=== PATIENT | male | born 1960 | race Caucasian/White ===

== ENCOUNTER → 2017-03-01 | Outpatient (REF) | payer OTHER | LOC: M SFHCLERA 19:00 | PROVIDERS: ATTEND Nurse Practitioner Family | DX: L02.91 Cutaneous abscess, unspecified (principal) ==

== ENCOUNTER → 2017-03-02 | Outpatient (REF) | payer OTHER | LOC: M LAB REF 10:47 | PROVIDERS: ATTEND Nurse Practitioner Family | DX: L02.91 Cutaneous abscess, unspecified (principal) ==

== ENCOUNTER → 2017-05-01 | Outpatient (CLI) | payer OTHER ==
--- NOTE | 2017-05-01 15:49 | REP ---
LEFT SHOULDER: Three views of the left shoulder are performed. There is no acute fracture or dislocation. There is mild narrowing at the acromioclavicular joint. IMPRESSION: Mild degenerative changes. Signed by Yonatan Kirkpatrick MD 05/02/2017 07:38 P
== END ==
LOC: M LRY 12:37
PROVIDERS: ATTEND Nurse Practitioner Family
DX: M19.012 Primary osteoarthritis, left shoulder (principal)

== ENCOUNTER 2017-11-09 04:40 | Emergency (ER) | payer OTHER ==
[2017-11-09] MEDS: LIDOCAINE W/EPINEPHRINE 1% 20ML VIAL SC (06:15)
== END 2017-11-09 08:09 | disposition home or self-care (01) ==
LOC: M ED 04:40
DX: S00.12XA Contusion of left eyelid and periocular area, initial encounter (principal); S01.91XA Laceration without foreign body of unspecified part of head, initial encounter; Y04.0XXA Assault by unarmed brawl or fight, initial encounter; Y92.89 Other specified places as the place of occurrence of the external cause; Y93.89 Activity, other specified; Y99.8 Other external cause status; M79.641 Pain in right hand; M79.642 Pain in left hand; E78.00 Pure hypercholesterolemia, unspecified; Z79.899 Other long term (current) drug therapy; Z79.82 Long term (current) use of aspirin; Z88.2 Allergy status to sulfonamides; Z88.8 Allergy status to other drugs, medicaments and biological substances
CPT/HCPCS: 73130

== ENCOUNTER 2017-11-16 17:58 | Emergency (ER) | payer OTHER | END 2017-11-16 18:50 | disposition home or self-care (01) | LOC: M ED 17:58 | DX: Z48.02 Encounter for removal of sutures (principal); Z79.899 Other long term (current) drug therapy; Z88.1 Allergy status to other antibiotic agents | CPT/HCPCS: 99282 ==

== ENCOUNTER 2017-11-23 07:53 | Emergency (ER) | payer OTHER | END 2017-11-23 09:23 | disposition home or self-care (01) | LOC: M ED 07:53 | DX: S09.90XD Unspecified injury of head, subsequent encounter (principal); W19.XXXD Unspecified fall, subsequent encounter; Y92.9 Unspecified place or not applicable; Y93.9 Activity, unspecified; M47.812 Spondylosis without myelopathy or radiculopathy, cervical region; Z79.899 Other long term (current) drug therapy; Z88.1 Allergy status to other antibiotic agents | CPT/HCPCS: 70450 ==

== ENCOUNTER 2018-10-29 13:01 | Inpatient (IN) | payer OTHER ==
[2018-10-29] MEDS: NS 1,000 ML IV ×2 (13:45→18:06)
[2018-10-29 14:23] LABS: HEMOGLOBIN 14.4 g/dl (13.5-17.5); MEAN CORPUSCULAR HEMOGLOBIN 32.4 pg (27.0-33.0); MEAN CORPUSCULAR HGB CONC 35.1 g/dl (32.0-36.5); MEAN CORPUSCULAR VOLUME 92.3 fl (80.0-96.0); PLATELET COUNT, AUTOMATED 201 10^3/uL (150-450); RED BLOOD COUNT 4.44 10^6/uL (4.30-6.10); RED CELL DISTRIBUTION WIDTH 11.8 % (11.5-14.5); WHITE BLOOD COUNT 8.8 10^3/uL (4.0-10.0)
[2018-10-29 14:43] LABS: AMPHETAMINES LEVEL URINE NEGATIVE (NEGATIVE); BARBITURATES URINE NEGATIVE (NEGATIVE); BENZODIAZEPINES URINE NEGATIVE (NEGATIVE); CANNABINOIDS URINE NEGATIVE (NEGATIVE); COCAINE METABOLITE URINE NEGATIVE (NEGATIVE); METHADONE URINE NEGATIVE (NEGATIVE); OPIATES URINE POSITIVE (NEGATIVE); PHENCYCLIDINE URINE NEGATIVE (NEGATIVE)
[2018-10-29] MEDS: D5W IV ×3 (15:43→16:57)
[2018-10-29] MEDS: ACETYLCYSTEINE IV ×3 (15:43→16:57)
[2018-10-29 16:03] LABS: BLOOD UREA NITROGEN 16 MG/DL (7-18); CREATININE FOR GFR 1.36 MG/DL (0.70-1.30); GLOMERULAR FILTRATION RATE 57.3 (>56); GLUCOSE, FASTING 282 MG/DL (70-100)
[2018-10-29 16:04] LABS: ALBUMIN 4.4 GM/DL (3.2-5.2); ALBUMIN/GLOBULIN RATIO 1.69 (1.00-1.93); ALKALINE PHOSPHATASE 70 U/L (45-117); ALT/SGPT 71 U/L (12-78); ANION GAP 11 MEQ/L (8-16); AST/SGOT 57 U/L (7-37); BILIRUBIN,DIRECT 0.1 MG/DL (0.0-0.2); BILIRUBIN,TOTAL 0.3 MG/DL (0.2-1.0); CALCIUM LEVEL 8.4 MG/DL (8.5-10.1); CARBON DIOXIDE LEVEL 23 MEQ/L (21-32); CHLORIDE LEVEL 99 MEQ/L (98-107); CPK CREATINE PHOSPHOKINASE 73 U/L (39-308); POTASSIUM SERUM 5.3 MEQ/L (3.5-5.1); SODIUM LEVEL 133 MEQ/L (136-145)
[2018-10-29 16:05] LABS: ACETAMINOPHEN LEVEL 101.6 UG/ML (10.0-30.0); ETHYL ALCOHOL (ETHANOL) 0.003 % (0.000-0.010); SALICYLATE LEVEL < 1.7 MG/DL (5.0-30.0)
[2018-10-29] MEDS: ACETYLCYSTEINE 8,500 MG in D5W 1,000 ML IV ×2 (16:30→21:45)
[2018-10-29 16:56] LABS: MB/CK RELATIVE INDEX 1.92 (< OR =4); TROPONIN I < 0.02 NG/ML (< 0.10)
[2018-10-29 17:00] LABS: ABG BASE EXCESS -6.6 (-2.0-2.0); ABG HCO3 21.6 MEQ/L (22.0-26.0); ABG O2 SATURATION 97.9 % (95.0-99.0); ABG PARTIAL PRESSURE CO2 53.6 mmHg (35.0-45.0); ABG PARTIAL PRESSURE O2 113.7 mmHg (75.0-100.0); ABG STANDARD HCO3 19.2 MEQ/L (22.0-26.0); ABG TOTAL CO2 23.2 MEQ/L (22.0-29.0)
[2018-10-29 17:02] LABS: ABG pH (ARTERIAL) 7.223 UNITS (7.350-7.450)
[2018-10-29] MEDS: NALOXONE INJ 0.4 MG/1 ML VIAL (J2310) IV (17:19)
[2018-10-29 17:41] LABS: ANION GAP 10 MEQ/L (8-16); BLOOD UREA NITROGEN 15 MG/DL (7-18); CALCIUM LEVEL 7.9 MG/DL (8.5-10.1); CARBON DIOXIDE LEVEL 24 MEQ/L (21-32); CHLORIDE LEVEL 102 MEQ/L (98-107); CREATININE FOR GFR 1.16 MG/DL (0.70-1.30); GLOMERULAR FILTRATION RATE > 60.0 (>56); GLUCOSE, FASTING 227 MG/DL (70-100); POTASSIUM SERUM 4.6 MEQ/L (3.5-5.1); SODIUM LEVEL 136 MEQ/L (136-145)
[2018-10-29 18:21] LABS: ABG BASE EXCESS -8.7 (-2.0-2.0); ABG HCO3 18.3 MEQ/L (22.0-26.0); ABG O2 SATURATION 96.5 % (95.0-99.0); ABG PARTIAL PRESSURE CO2 43.3 mmHg (35.0-45.0); ABG PARTIAL PRESSURE O2 91.7 mmHg (75.0-100.0); ABG STANDARD HCO3 17.6 MEQ/L (22.0-26.0); ABG TOTAL CO2 19.6 MEQ/L (22.0-29.0)
[2018-10-29 18:28] LABS: ABG pH (ARTERIAL) 7.244 UNITS (7.350-7.450)
[2018-10-29] MEDS ORDERED: GLUCOSE 4 GM CHEW TABLET PO (19:00)
[2018-10-29] MEDS ORDERED: DEXTROSE 50% 50 ML SYRINGE IV (19:00)
[2018-10-29] MEDS ORDERED: GLUCAGON FOR INJ 1 MG VIAL (J1610) SC (19:00)
[2018-10-29 19:16] LABS: INR 1.26
[2018-10-29 19:19] LABS: LACTIC ACID SEPSIS PROTOCOL 4.3 MMOL/L (0.4-2.0)
[2018-10-29] MEDS: SODIUM BICARBONATE 8.4% INJ 50 ML SYRINGE IV (19:34)
[2018-10-29] MEDS ORDERED: NS 0.45% 1,000 ML IV (19:45)
[2018-10-29 20:19] LABS: APPEARANCE, URINE CLEAR (CLEAR); BACTERIA, URINE AUTO NEGATIVE (NEGATIVE); BILIRUBIN, URINE AUTO NEGATIVE (NEGATIVE); BLOOD, URINE BLOOD NEGATIVE (NEGATIVE); COLOR, URINE YELLOW (YELLOW); GLUCOSE, URINE (UA) AUTO 1+ mg/dL (NEGATIVE); KETONE, URINE AUTO 1+ mg/dL (NEGATIVE); LEUKOCYTE ESTERASE, URINE AUTO NEGATIVE (NEGATIVE); NITRITE, URINE AUTO NEGATIVE (NEGATIVE); PROTEIN, URINE AUTO NEGATIVE (NEGATIVE); RBC, URINE AUTO 5 /HPF (0-3); SPECIFIC GRAVITY URINE AUTO 1.032 (1.002-1.035); SQUAMOUS EPITHELIAL CELL UR AU 0 /HPF (0-6); UROBILINOGEN, URINE AUTO 0.2 mg/dL (0.0-2.0); WBC, URINE AUTO 1 /HPF (0-3)
[2018-10-29] MEDS: SODIUM BICARBONATE 50 MEQ in NS 0.45% 1,000 ML IV (20:58)
[2018-10-29] MEDS ORDERED: HumaLOG INSULIN (NovoLOG) PER UNIT SC (21:00)
[2018-10-29 22:45] LABS: ACETAMINOPHEN LEVEL 74.7 UG/ML (10.0-30.0); ALBUMIN/GLOBULIN RATIO 1.48 (1.00-1.93); ALKALINE PHOSPHATASE 59 U/L (45-117); ALT/SGPT 96 U/L (12-78); ANION GAP 9 MEQ/L (8-16); AST/SGOT 72 U/L (7-37); BILIRUBIN,TOTAL 0.5 MG/DL (0.2-1.0); BLOOD UREA NITROGEN 14 MG/DL (7-18); CALCIUM LEVEL 8.4 MG/DL (8.5-10.1); CARBON DIOXIDE LEVEL 25 MEQ/L (21-32); CHLORIDE LEVEL 103 MEQ/L (98-107); CREATININE FOR GFR 0.95 MG/DL (0.70-1.30); GLOMERULAR FILTRATION RATE > 60.0 (>56); GLUCOSE, FASTING 141 MG/DL (70-100); POTASSIUM SERUM 4.5 MEQ/L (3.5-5.1); SODIUM LEVEL 137 MEQ/L (136-145); TOTAL PROTEIN 6.7 GM/DL (6.4-8.2)
[2018-10-30 00:07] LABS: BEDSIDE GLUCOSE 137 MG/DL (70-105)
[2018-10-30 00:09] LABS: ABG BASE EXCESS -5.6 (-2.0-2.0); ABG HCO3 22.2 MEQ/L (22.0-26.0); ABG O2 SATURATION 97.8 % (95.0-99.0); ABG PARTIAL PRESSURE CO2 52.5 mmHg (35.0-45.0); ABG PARTIAL PRESSURE O2 106.2 mmHg (75.0-100.0); ABG STANDARD HCO3 19.9 MEQ/L (22.0-26.0); ABG TOTAL CO2 23.8 MEQ/L (22.0-29.0)
[2018-10-30 00:10] LABS: ABG pH (ARTERIAL) 7.244 UNITS (7.350-7.450)
[2018-10-30] MEDS: HumaLOG INSULIN (NovoLOG) PER UNIT SC ×5 (00:59→20:43)
[2018-10-30 02:17] LABS: ACETAMINOPHEN LEVEL 43.3 UG/ML (10.0-30.0); ALBUMIN 3.8 GM/DL (3.2-5.2); ALBUMIN/GLOBULIN RATIO 1.52 (1.00-1.93); ALKALINE PHOSPHATASE 56 U/L (45-117); ALT/SGPT 86 U/L (12-78); ANION GAP 11 MEQ/L (8-16); AST/SGOT 61 U/L (7-37); BILIRUBIN,TOTAL 0.5 MG/DL (0.2-1.0); BLOOD UREA NITROGEN 12 MG/DL (7-18); CALCIUM LEVEL 8.1 MG/DL (8.5-10.1); CARBON DIOXIDE LEVEL 24 MEQ/L (21-32); CHLORIDE LEVEL 102 MEQ/L (98-107); CREATININE FOR GFR 0.88 MG/DL (0.70-1.30); GLOMERULAR FILTRATION RATE > 60.0 (>56); GLUCOSE, FASTING 134 MG/DL (70-100); POTASSIUM SERUM 4.1 MEQ/L (3.5-5.1); SODIUM LEVEL 137 MEQ/L (136-145); TOTAL PROTEIN 6.3 GM/DL (6.4-8.2)
[2018-10-30 06:08] LABS: BEDSIDE GLUCOSE 117 MG/DL (70-105)
[2018-10-30 06:16] LABS: ACETAMINOPHEN LEVEL 37.9 UG/ML (10.0-30.0); ALBUMIN 3.6 GM/DL (3.2-5.2); ALBUMIN/GLOBULIN RATIO 1.64 (1.00-1.93); ALKALINE PHOSPHATASE 53 U/L (45-117); ALT/SGPT 84 U/L (12-78); ANION GAP 8 MEQ/L (8-16); AST/SGOT 60 U/L (7-37); BILIRUBIN,TOTAL 0.5 MG/DL (0.2-1.0); BLOOD UREA NITROGEN 10 MG/DL (7-18); CALCIUM LEVEL 8.1 MG/DL (8.5-10.1); CARBON DIOXIDE LEVEL 26 MEQ/L (21-32); CHLORIDE LEVEL 105 MEQ/L (98-107); CREATININE FOR GFR 0.79 MG/DL (0.70-1.30); GLOMERULAR FILTRATION RATE > 60.0 (>56); GLUCOSE, FASTING 125 MG/DL (70-100); POTASSIUM SERUM 3.6 MEQ/L (3.5-5.1); SODIUM LEVEL 139 MEQ/L (136-145); TOTAL PROTEIN 5.8 GM/DL (6.4-8.2)
[2018-10-30 06:23] LABS: ABG pH (ARTERIAL) 7.303 UNITS (7.350-7.450)
[2018-10-30 06:24] LABS: ABG HCO3 26.2 MEQ/L (22.0-26.0); ABG O2 SATURATION 98.3 % (95.0-99.0); ABG PARTIAL PRESSURE CO2 54.1 mmHg (35.0-45.0); ABG PARTIAL PRESSURE O2 124.1 mmHg (75.0-100.0); ABG STANDARD HCO3 23.7 MEQ/L (22.0-26.0); ABG TOTAL CO2 27.9 MEQ/L (22.0-29.0)
[2018-10-30] MEDS: SODIUM BICARBONATE 50 MEQ in NS 0.45% 1,000 ML IV ×2 (06:56→16:34)
[2018-10-30] MEDS ORDERED: HumaLOG INSULIN (NovoLOG) PER UNIT SC (07:30)
[2018-10-30] MEDS ORDERED: POTASSIUM CHLORIDE 10 MEQ SR TABLET As Ordered (10:21)
[2018-10-30] MEDS: POTASSIUM CHLORIDE 10 MEQ SR TABLET PO ×2 (10:32→16:34)
[2018-10-30 11:22] LABS: HEMATOCRIT 37.7 % (42.0-52.0); HEMOGLOBIN 13.5 g/dl (13.5-17.5); MEAN CORPUSCULAR HEMOGLOBIN 32.3 pg (27.0-33.0); MEAN CORPUSCULAR HGB CONC 35.8 g/dl (32.0-36.5); MEAN CORPUSCULAR VOLUME 90.2 fl (80.0-96.0); PLATELET COUNT, AUTOMATED 177 10^3/uL (150-450); RED BLOOD COUNT 4.18 10^6/uL (4.30-6.10); RED CELL DISTRIBUTION WIDTH 11.9 % (11.5-14.5); WHITE BLOOD COUNT 10.1 10^3/uL (4.0-10.0)
[2018-10-30 11:41] LABS: BEDSIDE GLUCOSE 191 MG/DL (70-105)
[2018-10-30 11:43] LABS: INR 1.31; PROTHROMBIN TIME 16.5 SECONDS (12.1-14.4)
[2018-10-30] MEDS: ONDANSETRON 4 MG TAB (S0181) PO (11:45)
[2018-10-30 11:58] LABS: ACETAMINOPHEN LEVEL 34.1 UG/ML (10.0-30.0); ALBUMIN 3.6 GM/DL (3.2-5.2); ALKALINE PHOSPHATASE 57 U/L (45-117); ALT/SGPT 109 U/L (12-78); AST/SGOT 91 U/L (7-37); BILIRUBIN,DIRECT 0.2 MG/DL (0.0-0.2); BILIRUBIN,TOTAL 0.6 MG/DL (0.2-1.0)
[2018-10-30] MEDS ORDERED: ACETYLCYSTEINE 0 MG in D5W 1,000 ML IV (12:30)
[2018-10-30] MEDS ORDERED: ONDANSETRON 4MG/2ML VIAL (J2405) IV (12:30)
[2018-10-30] MEDS: OMEPRAZOLE 20 MG CAP PO (13:02)
[2018-10-30] MEDS: ESCITALOPRAM OXALATE 10 MG TAB (LEXAPRO) PO (13:02)
[2018-10-30 13:08] LABS: ANION GAP 10 MEQ/L (8-16); BLOOD UREA NITROGEN 8 MG/DL (7-18); CALCIUM LEVEL 8.1 MG/DL (8.5-10.1); CARBON DIOXIDE LEVEL 25 MEQ/L (21-32); CHLORIDE LEVEL 101 MEQ/L (98-107); CREATININE FOR GFR 0.88 MG/DL (0.70-1.30); GLOMERULAR FILTRATION RATE > 60.0 (>56); GLUCOSE, FASTING 210 MG/DL (70-100); POTASSIUM SERUM 3.5 MEQ/L (3.5-5.1); SODIUM LEVEL 136 MEQ/L (136-145)
[2018-10-30] MEDS: ACETYLCYSTEINE 8,500 MG in D5W 1,000 ML IV (13:58)
[2018-10-30 16:38] LABS: BEDSIDE GLUCOSE 130 MG/DL (70-105)
[2018-10-30 17:05] LABS: ACETAMINOPHEN LEVEL 20.6 UG/ML (10.0-30.0); ALBUMIN 3.6 GM/DL (3.2-5.2); ALBUMIN/GLOBULIN RATIO 1.57 (1.00-1.93); ALKALINE PHOSPHATASE 52 U/L (45-117); ALT/SGPT 149 U/L (12-78); ANION GAP 8 MEQ/L (8-16); AST/SGOT 136 U/L (7-37); BILIRUBIN,TOTAL 0.5 MG/DL (0.2-1.0); BLOOD UREA NITROGEN 5 MG/DL (7-18); CALCIUM LEVEL 8.3 MG/DL (8.5-10.1); CARBON DIOXIDE LEVEL 27 MEQ/L (21-32); CHLORIDE LEVEL 105 MEQ/L (98-107); CREATININE FOR GFR 0.79 MG/DL (0.70-1.30); GLOMERULAR FILTRATION RATE > 60.0 (>56); GLUCOSE, FASTING 102 MG/DL (70-100); SODIUM LEVEL 140 MEQ/L (136-145); TOTAL PROTEIN 5.9 GM/DL (6.4-8.2)
[2018-10-30 18:10] LABS: ABG BASE EXCESS -1.3 (-2.0-2.0); ABG HCO3 24.2 MEQ/L (22.0-26.0); ABG O2 SATURATION 95.4 % (95.0-99.0); ABG PARTIAL PRESSURE CO2 43.7 mmHg (35.0-45.0); ABG PARTIAL PRESSURE O2 72.2 mmHg (75.0-100.0); ABG STANDARD HCO3 23.3 MEQ/L (22.0-26.0); ABG TOTAL CO2 25.5 MEQ/L (22.0-29.0); ABG pH (ARTERIAL) 7.361 UNITS (7.350-7.450)
[2018-10-30 20:25] LABS: ACETAMINOPHEN LEVEL 9.4 UG/ML (10.0-30.0); ALBUMIN 3.7 GM/DL (3.2-5.2); ALBUMIN/GLOBULIN RATIO 1.61 (1.00-1.93); ALKALINE PHOSPHATASE 55 U/L (45-117); ALT/SGPT 207 U/L (12-78); ANION GAP 7 MEQ/L (8-16); AST/SGOT 198 U/L (7-37); BILIRUBIN,TOTAL 0.6 MG/DL (0.2-1.0); BLOOD UREA NITROGEN 4 MG/DL (7-18); CALCIUM LEVEL 8.6 MG/DL (8.5-10.1); CARBON DIOXIDE LEVEL 29 MEQ/L (21-32); CHLORIDE LEVEL 104 MEQ/L (98-107); GLOMERULAR FILTRATION RATE > 60.0 (>56); GLUCOSE, FASTING 163 MG/DL (70-100); SODIUM LEVEL 140 MEQ/L (136-145)
[2018-10-30 20:46] LABS: BEDSIDE GLUCOSE 157 MG/DL (70-105)
[2018-10-31 00:44] LABS: ACETAMINOPHEN LEVEL 3.9 UG/ML (10.0-30.0); ALBUMIN 3.5 GM/DL (3.2-5.2); ALBUMIN/GLOBULIN RATIO 1.59 (1.00-1.93); ALKALINE PHOSPHATASE 56 U/L (45-117); ALT/SGPT 337 U/L (12-78); ANION GAP 6 MEQ/L (8-16); AST/SGOT 371 U/L (7-37); BILIRUBIN,TOTAL 0.7 MG/DL (0.2-1.0); BLOOD UREA NITROGEN 3 MG/DL (7-18); CALCIUM LEVEL 8.1 MG/DL (8.5-10.1); CARBON DIOXIDE LEVEL 29 MEQ/L (21-32); CHLORIDE LEVEL 105 MEQ/L (98-107); CREATININE FOR GFR 0.71 MG/DL (0.70-1.30); GLOMERULAR FILTRATION RATE > 60.0 (>56); GLUCOSE, FASTING 138 MG/DL (70-100); POTASSIUM SERUM 4.1 MEQ/L (3.5-5.1); SODIUM LEVEL 140 MEQ/L (136-145); TOTAL PROTEIN 5.7 GM/DL (6.4-8.2)
[2018-10-31 03:27] LABS: BEDSIDE GLUCOSE 162 MG/DL (70-105)
[2018-10-31] MEDS: SODIUM BICARBONATE 50 MEQ in NS 0.45% 1,000 ML IV (03:47)
[2018-10-31] MEDS: ACETYLCYSTEINE 8,500 MG in D5W 1,000 ML IV (05:07)
[2018-10-31 05:11] LABS: HEMATOCRIT 37.9 % (42.0-52.0); HEMOGLOBIN 13.6 g/dl (13.5-17.5); MEAN CORPUSCULAR HEMOGLOBIN 32.4 pg (27.0-33.0); MEAN CORPUSCULAR HGB CONC 35.9 g/dl (32.0-36.5); MEAN CORPUSCULAR VOLUME 90.2 fl (80.0-96.0); PLATELET COUNT, AUTOMATED 156 10^3/uL (150-450); RED CELL DISTRIBUTION WIDTH 11.6 % (11.5-14.5); WHITE BLOOD COUNT 8.4 10^3/uL (4.0-10.0)
[2018-10-31 05:20] LABS: PROTHROMBIN TIME 16.3 SECONDS (12.1-14.4)
[2018-10-31 05:38] LABS: ACETAMINOPHEN LEVEL 2.5 UG/ML (10.0-30.0); ALBUMIN 3.5 GM/DL (3.2-5.2); ALBUMIN/GLOBULIN RATIO 1.59 (1.00-1.93); ALKALINE PHOSPHATASE 59 U/L (45-117); ALT/SGPT 521 U/L (12-78); ANION GAP 7 MEQ/L (8-16); AST/SGOT 558 U/L (7-37); BILIRUBIN,DIRECT 0.4 MG/DL (0.0-0.2); BILIRUBIN,TOTAL 0.9 MG/DL (0.2-1.0); BLOOD UREA NITROGEN 3 MG/DL (7-18); CALCIUM LEVEL 8.2 MG/DL (8.5-10.1); CARBON DIOXIDE LEVEL 30 MEQ/L (21-32); CHLORIDE LEVEL 100 MEQ/L (98-107); CREATININE FOR GFR 0.72 MG/DL (0.70-1.30); GLOMERULAR FILTRATION RATE > 60.0 (>56); GLUCOSE, FASTING 157 MG/DL (70-100); POTASSIUM SERUM 3.9 MEQ/L (3.5-5.1); SODIUM LEVEL 137 MEQ/L (136-145); TOTAL PROTEIN 5.7 GM/DL (6.4-8.2)
[2018-10-31] MEDS ORDERED: ACETYLCYSTEINE 0 MG in D5W 1,000 ML IV (06:00)
[2018-10-31 07:44] LABS: BEDSIDE GLUCOSE 156 MG/DL (70-105)
[2018-10-31] MEDS: OMEPRAZOLE 20 MG CAP PO (08:37)
[2018-10-31] MEDS: HumaLOG INSULIN (NovoLOG) PER UNIT SC ×4 (08:37→21:00)
[2018-10-31] MEDS: ESCITALOPRAM OXALATE 10 MG TAB (LEXAPRO) PO (09:02)
[2018-10-31 09:49] LABS: ACETAMINOPHEN LEVEL < 2.0 UG/ML (10.0-30.0); ALBUMIN 3.7 GM/DL (3.2-5.2); ALBUMIN/GLOBULIN RATIO 1.54 (1.00-1.93); ALKALINE PHOSPHATASE 59 U/L (45-117); ALT/SGPT 596 U/L (12-78); ANION GAP 10 MEQ/L (8-16); AST/SGOT 580 U/L (7-37); BILIRUBIN,TOTAL 0.9 MG/DL (0.2-1.0); BLOOD UREA NITROGEN 3 MG/DL (7-18); CALCIUM LEVEL 8.7 MG/DL (8.5-10.1); CARBON DIOXIDE LEVEL 29 MEQ/L (21-32); CHLORIDE LEVEL 100 MEQ/L (98-107); CREATININE FOR GFR 0.84 MG/DL (0.70-1.30); GLOMERULAR FILTRATION RATE > 60.0 (>56); GLUCOSE, FASTING 175 MG/DL (70-100); POTASSIUM SERUM 3.8 MEQ/L (3.5-5.1); SODIUM LEVEL 139 MEQ/L (136-145); TOTAL PROTEIN 6.1 GM/DL (6.4-8.2)
[2018-10-31 12:28] LABS: BEDSIDE GLUCOSE 169 MG/DL (70-105)
[2018-10-31] MEDS ORDERED: SLF 3 ML SYR IV (15:00)
[2018-10-31 17:10] LABS: BEDSIDE GLUCOSE 138 MG/DL (70-105)
[2018-10-31 18:26] LABS: MAGNESIUM LEVEL 1.8 MG/DL (1.8-2.4)
[2018-10-31 18:28] LABS: INR 1.16
[2018-10-31 18:34] LABS: ACETAMINOPHEN LEVEL < 2.0 UG/ML (10.0-30.0); ALBUMIN 3.8 GM/DL (3.2-5.2); ALBUMIN/GLOBULIN RATIO 1.31 (1.00-1.93); ALKALINE PHOSPHATASE 73 U/L (45-117); ALT/SGPT 629 U/L (12-78); ANION GAP 10 MEQ/L (8-16); AST/SGOT 413 U/L (7-37); BILIRUBIN,DIRECT 0.4 MG/DL (0.0-0.2); BLOOD UREA NITROGEN 4 MG/DL (7-18); CALCIUM LEVEL 8.9 MG/DL (8.5-10.1); CARBON DIOXIDE LEVEL 27 MEQ/L (21-32); CHLORIDE LEVEL 103 MEQ/L (98-107); CREATININE FOR GFR 0.71 MG/DL (0.70-1.30); GLOMERULAR FILTRATION RATE > 60.0 (>56); GLUCOSE, FASTING 168 MG/DL (70-100); POTASSIUM SERUM 3.9 MEQ/L (3.5-5.1); SODIUM LEVEL 140 MEQ/L (136-145); TOTAL PROTEIN 6.7 GM/DL (6.4-8.2)
[2018-10-31] MEDS: MAG SULF 1GM/100ML (MAG RUN) 1 GM in APPROPRIATE DILUENT 1 EA IV (18:58)
[2018-10-31 19:18] LABS: CPK CREATINE PHOSPHOKINASE 110 U/L (39-308)
[2018-10-31] MEDS: ACETYLCYSTEINE IV (20:09)
[2018-10-31] MEDS: D5W IV (20:09)
[2018-10-31 21:21] LABS: BEDSIDE GLUCOSE 194 MG/DL (70-105)
[2018-10-31] MEDS: SLF 3 ML SYR IV (21:22)
[2018-11-01 05:01] LABS: HEMOGLOBIN 14.1 g/dl (13.5-17.5); MEAN CORPUSCULAR HEMOGLOBIN 31.9 pg (27.0-33.0); MEAN CORPUSCULAR HGB CONC 36.2 g/dl (32.0-36.5); MEAN CORPUSCULAR VOLUME 88.2 fl (80.0-96.0); PLATELET COUNT, AUTOMATED 166 10^3/uL (150-450); RED BLOOD COUNT 4.42 10^6/uL (4.30-6.10); RED CELL DISTRIBUTION WIDTH 11.6 % (11.5-14.5); WHITE BLOOD COUNT 6.9 10^3/uL (4.0-10.0)
[2018-11-01 05:21] LABS: ALBUMIN 3.6 GM/DL (3.2-5.2); ALKALINE PHOSPHATASE 69 U/L (45-117); ALT/SGPT 529 U/L (12-78); ANION GAP 6 MEQ/L (8-16); AST/SGOT 248 U/L (7-37); BILIRUBIN,TOTAL 0.8 MG/DL (0.2-1.0); BLOOD UREA NITROGEN 6 MG/DL (7-18); CALCIUM LEVEL 8.8 MG/DL (8.5-10.1); CARBON DIOXIDE LEVEL 30 MEQ/L (21-32); CHLORIDE LEVEL 102 MEQ/L (98-107); CREATININE FOR GFR 0.67 MG/DL (0.70-1.30); GLOMERULAR FILTRATION RATE > 60.0 (>56); GLUCOSE, FASTING 166 MG/DL (70-100); POTASSIUM SERUM 3.4 MEQ/L (3.5-5.1); SODIUM LEVEL 138 MEQ/L (136-145); TOTAL PROTEIN 6.6 GM/DL (6.4-8.2)
[2018-11-01] MEDS: SLF 3 ML SYR IV ×2 (05:59→14:00)
[2018-11-01 07:51] LABS: BEDSIDE GLUCOSE 157 MG/DL (70-105)
[2018-11-01] MEDS: ESCITALOPRAM OXALATE 10 MG TAB (LEXAPRO) PO (08:19)
[2018-11-01] MEDS: OMEPRAZOLE 20 MG CAP PO (08:19)
[2018-11-01] MEDS: HumaLOG INSULIN (NovoLOG) PER UNIT SC ×3 (08:19→17:30)
[2018-11-01] MEDS: POTASSIUM CHLORIDE 10 MEQ SR TABLET PO (08:20)
[2018-11-01 08:21] LABS: INR 1.03; PROTHROMBIN TIME 13.6 SECONDS (12.1-14.4)
[2018-11-01 11:58] LABS: BEDSIDE GLUCOSE 133 MG/DL (70-105)
[2018-11-01] MEDS: LISINOPRIL 10 MG TAB PO (12:28)
[2018-11-01 17:05] LABS: BEDSIDE GLUCOSE 136 MG/DL (70-105)
[2018-11-01] MEDS ORDERED: EZETIMIBE 10 MG TAB (ZETIA) PO (21:00)
== END 2018-11-01 19:13 | DRG 918 ==
LOC: M ED 13:01 → M ED INP 19:21 → M ICU 19:58
DX: T40.2X2A Poisoning by other opioids, intentional self-harm, initial encounter (principal); E87.2 Acidosis; N17.9 Acute kidney failure, unspecified; T46.4X2A Poisoning by angiotensin-converting-enzyme inhibitors, intentional self-harm, initial encounter; E11.9 Type 2 diabetes mellitus without complications; I10 Essential (primary) hypertension; F32.9 Major depressive disorder, single episode, unspecified; K21.9 Gastro-esophageal reflux disease without esophagitis; E78.49 Other hyperlipidemia; N52.9 Male erectile dysfunction, unspecified; Z88.2 Allergy status to sulfonamides; F10.10 Alcohol abuse, uncomplicated; Z79.899 Other long term (current) drug therapy; E87.6 Hypokalemia; R33.9 Retention of urine, unspecified

== ENCOUNTER 2018-11-01 18:47 | Inpatient (IN) | payer OTHER ==
[~2018-11-01] VITALS: Ht 167.6 cm; Wt 82.3 kg
[~2018-11-01 18:47] MED LIST: ESCI20TA PO; HYDR-3713 PO; HYDR-3716; LISI-672 PO; MELO15TA28 PO; METF500T13 PO; NEXI40CA PO; NORT25CA2 PO; SILD50TA PO; TIZA2CAP PO; TRAM50TA2; ZETI10TA30 PO
[2018-11-01] MEDS ORDERED: IBUPROFEN 400 MG TAB PO PRN (19:00)
[2018-11-01] MEDS ORDERED: ONDANSETRON 4 MG TAB (S0181) PO PRN (19:00)
[2018-11-01] MEDS ORDERED: MOM 30ML SUSPENSION UDC PO PRN (19:00)
[2018-11-01] MEDS ORDERED: MAALOX 30 ML SUSP *UDC PO PRN (19:00)
[2018-11-01] MEDS ORDERED: DEXTROSE 50% 50 ML SYRINGE IV PRN (19:15)
[2018-11-01] MEDS ORDERED: GLUCAGON FOR INJ 1 MG VIAL (J1610) SC PRN (19:15)
[2018-11-01] MEDS ORDERED: GLUCOSE 4 GM CHEW TABLET PO PRN (19:15)
[2018-11-01 19:46] VITALS: BP 152/90
[2018-11-01] MEDS: HumaLOG INSULIN (NovoLOG) PER UNIT SC SCH (21:00)
[2018-11-02] MEDS: HumaLOG INSULIN (NovoLOG) PER UNIT SC SCH ×4 (06:51→21:00)
[2018-11-02 07:03] VITALS: BP 143/88
[2018-11-02 07:43] LABS: ALBUMIN 4.3 GM/DL (3.2-5.2); ALT/SGPT 409 U/L (12-78); BILIRUBIN,DIRECT 0.2 MG/DL (0.0-0.2); BILIRUBIN,TOTAL 0.7 MG/DL (0.2-1.0); BLOOD UREA NITROGEN 10 MG/DL (7-18); CALCIUM LEVEL 9.8 MG/DL (8.5-10.1); CARBON DIOXIDE LEVEL 31 MEQ/L (21-32); CHLORIDE LEVEL 104 MEQ/L (98-107); CREATININE FOR GFR 0.91 MG/DL (0.70-1.30); GLOMERULAR FILTRATION RATE > 60.0 (>56); GLUCOSE, FASTING 138 MG/DL (70-100); POTASSIUM SERUM 4.3 MEQ/L (3.5-5.1); SODIUM LEVEL 142 MEQ/L (136-145); TOTAL PROTEIN 7.1 GM/DL (6.4-8.2)
[2018-11-02] MEDS: OMEPRAZOLE 20 MG CAP PO SCH (09:12)
--- NOTE | 2018-11-02 15:28 | MHHPEPDOC ---
[facility] History & Physical History and Physical DATE OF ADMISSION: Nov 01, 2018 at 19:15 LEGAL STATUS AT ADMISSION: 9.39 CHIEF COMPLAINT: Recent overdose (severe) HISTORY OF PRESENT ILLNESS: Patient is a 58-year-old male, who , according to previous records: "As per previous records: "Patient is a 58-year-old male with past medical history of diabetes, hypertension, depression, erectile dysfunction, GERD, hyperlipidemia presenting with chief complaint of an overdose and altered mental status. History limited secondary to patient being unable to give an appropriate history of the last 24 hours. He believes that sometime last night he woke possibly 60 tablets of hydrocodone, 20 lisinopril 10 mg, and 20 lisinopril 20 mg. history obtained by the ER attending however states that we at time of presentation we were approximately 11 hours into the overdose. Per his , he told her that he left a note for her on the computer and she believes he did intend to kill himself. She states that he has been having a lot of social difficulties with his family recently and that could've been a continuing factor to his suicidal actions. At bedside patient becomes easily distracted when asked questions and is not able to remember any answer. But he does attempt to respond to questions and after repeated prompting is able to respond appropriately. He states he is felt depressed for many the past years, his states that he has been taking his antidepressant medication during this time." PSYCHIATRIC REVIEW OF SYSTEMS: Affective: Depressed mood, anhedonia, guilty feelings, low energy levels, hopelessness, helplessness, worthlessness, poor sleep, normal appetite, suicidal thoughts, poor attention and concentration Anxiety: irritability, muscle tension, poor concentration, anxious thoughts about the future Trauma: denies Psychosis: denies Personality: R/O paranoid personality traits PAST PSYCHIATRIC HISTORY: Prior Psychiatric Disorder: Depression Outpatient Treatment: . Suicidal/Self injurious: Yes, a recent one on 10/29/18. He OD'd on Hydrocodone (approximately 60 tablets of 20 mgs.) Lisinopril ( approximately 20 tablets of 10 mgs and Lisinorpril approximately 20 tablets of 10 mgs. Psychotropic Medication History: he has been taking Lexapro for several years since his 16 year old son committed suicide ALLERGIES: Please see below. FAMILY PSYCHIATRIC HISTORY: He denies other family members with psychiatric di sorders, except for his 16 year old son who committed suicide at age 16 SOCIAL HISTORY: Early Relations/development: Born in [place], raised in [place] and went into service when he was 16. Sibling order: His father has three children, his mother had 3 and he is the only one from mom and dad Paternal relationships: Father from liver cancer around 6 years ago and his mother is living at an assisted living facility in [place]. 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 His son was taken Accutane for acne and he got severely depressed. He took his life. Economic: He receives his money from his intermediate and his too. It's enough for them Supports: His Abuse/trauma: Denies SUBSTANCE ABUSE HISTORY: . PAST MEDICAL/SURGICAL HISTORY: As per previous documents: "diabetes, hypertension, depression, erectile dysfunction, GERD, hyperlipidemia" VITAL SIGNS: Please see below. MENTAL STATUS EXAMINATION: Patient is a 58-year old male, who is alert, laying in bed, dressed in hospitl clothes, cooperative. Speech: Is normal rate, tone and volume. Language skills are good. Thought processes including: intact. Thought content: angry thoughts directed agains his in laws. Depressed and anxious thoughts. Cognitive distortions. Description of abnormal or psychotic thoughts: Denies AV hallucinations, denies thought delusions but he seems a little paranoid, denies active suicidal thoughts but admits passive SI. Denies HI Judgment: Poor Insight: Poor Orientation: x 3 Recent and remote memory: Intact Attention span and concentration: good Language: normal Fund of knowledge: average Mood: Depressed/anxious. he says "I'm more emotional since I've been out of the Lexapro" Affect: Congruent with mood DIAGNOSES: 1. Major Depressive disorder, recurrent 2. Alcohol use disorder 3. R/O alcohol induced mood disorder DIAGNOSES: 1. major Depressive disorder, recurrent, severe 2. Generalized anxiety disorder 3. R/O personality disorder ASSESSMENT: Patient is severely depressed over a series of family problems that lead to him being arrested. He has been charged. he says nobody believes him and some people have told him "it's only land" but these people can't figure out how valuable that land is for him. Apparently he bought it 20 years ago. that land belonged to his 's relatives and according to him one of his 's brothers has been trespassing his property and cutting the trees in it. Since he thinks nobody believes him, he took and impulsive decision and he overdosed. he says he wope up twice and he was very surprised because he was still alive, so, he took more pills. His found him sleeping on the high school coach and she tried to wake him up but he was unresponsive. After she shook him, he opened his eyes but he had a blank stare. she called the ambulance and he was brought to the hospital. he is still very vulnerable and very depressed. needs his medications to be adjusted and to be stabilized. he said that he also has been drinking about 5 onces of al cohol lately and he has been hiding this from his . he thinkd the alcohol might have something to do with his suicide attempt. PROBLEM LIST: 1. Depression 2. Anxiety. 3. Poor coping skills. INITIAL TREATMENT PLAN: 1. Patient was admitted on a 9. 2. Complete history was obtained. 3. With patients permission, family will be contacted and database will be expanded. 4. Patients medication regimen will be reviewed and changed accordingly. 5. Patient will be provided with protected environment. 6. Patient will be treated with individual, group, and milieu therapies. 7. Patient will receive supportive psych-education. 8. Discharge planning will commence immediately. 9. Outpatient follow-up treatment will be strongly recommended. 10. The initial treatment plan will focus initially on: * Depression. * Risk for suicide. * Substance abuse. ESTIMATED LENGTH OF STAY: 5-7 DAYS. TIME SPENT COUNSELING AND COORDINATING INITIAL CARE: 60 minutes. Vital Signs Vital Signs Date Time Temp Pulse Resp B/P (MAP) Pulse Ox O2 Delivery O2 Flow Rate FiO2 11/02/18 07:03 97.9 73 14 143/88 (106) 11/01/18 19:46 98 Room Air Laboratory Data 24H Labs Laboratory Tests 2 11/01/18 22:21: Bedside Glucose (Misc Panel) 168H 11/02/18 06:43: Bedside Glucose (Misc Panel) 139H 11/02/18 06:56: Anion Gap 7L, Glomerular Filtration Rate > 60.0, Blood Urea Nitrogen 10#, Creatinine 0.91, Sodium Level 142, Potassium Level 4.3#, Chloride Level 104, Carbon Dioxide Level 31, Calcium Level 9.8, Aspartate Amino Transf (AST/SGOT) 118H, Alanine Aminotransferase (ALT/SGPT) 409H, Alkaline Phosphatase 84, Total Bilirubin 0.7, Direct Bilirubin 0.2, Total Protein 7.1, Albumin 4.3, Albumin/Globulin Ratio 1.54 11/02/18 11:32: Bedside Glucose (Misc Panel) 153H CBC/BMP Laboratory Tests 11/02/18 06:56 Calcium Level 9.8, Aspartate Amino Transf (AST/SGOT) 118 H, Alanine Aminotransferase (ALT/SGPT) 409 H, Alkaline Phosphatase 84, Total Bilirubin 0.7, Direct Bilirubin 0.2, Total Protein 7.1, Albumin 4.3 FSBS Laboratory Tests Test 11/01/18 22:21 11/02/18 06:43 11/02/18 11:32 Range/Units Bedside Glucose (Misc Panel) 168 139 153 70-105 MG/DL Medications Scheduled Escitalopram Oxalate (Escitalopram Oxalate) 20 Mg Tab, 20 MG PO DAILY, (Reported) Esomeprazole Magnesium Trihydr (Nexium) 40 Mg Cap, 40 MG PO DAILY, (Reported) Ezetimibe (Zetia) 10 Mg Tab, 10 MG PO QHS, (Reported) Lisinopril (Lisinopril) 30 Mg Tab, 30 MG PO QHS, (Reported) WAS JUST INCREASED FROM 20MG Metformin Hydrochloride (Metformin HCl) 500 Mg Tab, 500 MG PO DAILY, (Reported) Scheduled PRN Sildenafil Citrate (Viagra) 50 Mg Tab, 50 MG PO ASDIRECTED PRN for ERECTILE DYSFUNCTION, (Reported) Allergies Coded Allergies: Sulfamethoxazole w/Trimethoprim (Verified Allergy, Intermediate, rash, 11/09/17) MAVERICK CAMACHO MD Nov 02, 2018 14:37
[2018-11-02] MEDS: EZETIMIBE 10 MG TAB (ZETIA) PO SCH (20:07)
[2018-11-02] MEDS: LISINOPRIL 10 MG TAB PO SCH (20:10)
[2018-11-02] MEDS ORDERED: LISINOPRIL 20 MG TAB PO SCH (21:00)
[2018-11-02] MEDS ORDERED: ESCITALOPRAM OXALATE 10 MG TAB (LEXAPRO) PO SCH (21:00)
[2018-11-02] MEDS ORDERED: amLODIPine 10 MG TAB PO ONE (22:15)
[2018-11-03 06:30] VITALS: BP 132/84
[2018-11-03] MEDS: HumaLOG INSULIN (NovoLOG) PER UNIT SC SCH ×4 (06:40→20:37)
[2018-11-03 07:26] LABS: ALBUMIN 3.9 GM/DL (3.2-5.2); ALT/SGPT 273 U/L (12-78); BILIRUBIN,TOTAL 0.6 MG/DL (0.2-1.0); BLOOD UREA NITROGEN 12 MG/DL (7-18); CALCIUM LEVEL 9.3 MG/DL (8.5-10.1); CARBON DIOXIDE LEVEL 30 MEQ/L (21-32); CHLORIDE LEVEL 104 MEQ/L (98-107); CREATININE FOR GFR 0.88 MG/DL (0.70-1.30); GLOMERULAR FILTRATION RATE > 60.0 (>56); GLUCOSE, FASTING 125 MG/DL (70-100); SODIUM LEVEL 142 MEQ/L (136-145); TOTAL PROTEIN 6.7 GM/DL (6.4-8.2)
[2018-11-03] MEDS ORDERED: SERTRALINE HCL 50 MG TAB PO SCH (09:00)
[2018-11-03] MEDS: OMEPRAZOLE 20 MG CAP PO SCH (11:31)
[2018-11-03] MEDS: amLODIPine 10 MG TAB PO SCH (11:31)
[2018-11-03 18:00] VITALS: BP 162/80
--- NOTE | 2018-11-03 18:00 | MHIPNPDOC ---
[facility] Progress Note Progress Note DATE OF SERVICE: 11/03/18 HISTORY: Patient is a 58-year-old male, who , according to previous records: "As per previous records: "Patient is a 58-year-old male with past medical history of diabetes, hypertension, depression, erectile dysfunction, GERD, hyperlipidemia presenting with chief complaint of an overdose and altered mental status. History limited secondary to patient being unable to give an appropriate history of the last 24 hours. He believes that sometime last night he woke possibly 60 tablets of hydrocodone, 20 lisinopril 10 mg, and 20 lisinopril 20 mg. history obtained by the ER attending however states that we at time of presentation we were approximately 11 hours into the overdose. Per his , he told her that he left a note for her on the computer and she believes he did intend to kill himself. She states that he has been having a lot of social difficulties with his family recently and that could've been a continuing factor to his suicidal actions. At bedside patient becomes easily distracted when asked questions and is not able to remember any answer. But he does attempt to respond to questions and after repeated prompting is able to respond appropriately. He states he is felt depressed for many the past years, his states that he has been taking his antidepressant medication during this time." VITAL SIGNS: See below. NEW TEST RESULTS: See below CURRENT MEDICATIONS: See below. MENTAL STATUS EXAMINATION: Patient is a 58-year old male, who is alert, cooperative, pleasant, dressed in personal clothes. Speech: Is clear, spontaneous, fluent. Language skills are good. Thought processes including: intact. Thought content: anxious and depressive thoughts. Description of abnormal or psychotic thoughts: Denies SI, denies HI, denies thought delusions, denies AV hallucinations, reports feeling emotional/sd Judgment: improving. Insight: improving. Orientation: x3. Recent and remote memory: intact. Attention span and concentration: good. Language: normal. Fund of knowledge: average. Mood: sad/depressed/anxiousAffect: sad/depressed DIAGNOSES: 1. MDD, severe, recurrent 2. Alcohol use disorder. 3. R/O substance induced depression. ASSESSMENT: Cooperative, pleasant. Had a conversation about medications and went back to Zoloft that was mi first proposal. he accepted it. Discussed alcohol/depression and anxiety. MANAGEMENT PLAN: Zoloft 50 mgs PO daily TIME SPENT: 20 minutes. Vital Signs Vital Signs Date Time Temp Pulse Resp B/P (MAP) Pulse Ox O2 Delivery O2 Flow Rate FiO2 11/03/18 11:31 76 141/84 11/03/18 06:30 98.2 16 11/01/18 19:46 98 Room Air Laboratory Data 24H Labs Laboratory Tests 2 11/02/18 20:05: Bedside Glucose (Misc Panel) 132H 11/03/18 06:26: Bedside Glucose (Misc Panel) 127H 11/03/18 06:37: Anion Gap 8, Glomerular Filtration Rate > 60.0, Blood Urea Nitrogen 12, Creatinine 0.88, Sodium Level 142, Potassium Level 4.0, Chloride Level 104, Carbon Dioxide Level 30, Calcium Level 9.3, Aspartate Amino Transf (AST/SGOT) 53H, Alanine Aminotransferase (ALT/SGPT) 273H, Alkaline Phosphatase 88, Total Bilirubin 0.6, Total Protein 6.7, Albumin 3.9, Albumin/Globulin Ratio 1.39 11/03/18 11:36: Bedside Glucose (Misc Panel) 193H CBC/BMP Laboratory Tests 11/03/18 06:37 Calcium Level 9.3, Aspartate Amino Transf (AST/SGOT) 53 H, Alanine Aminotransferase (ALT/SGPT) 273 H, Alkaline Phosphatase 88, Total Bilirubin 0.6, Total Protein 6.7, Albumin 3.9 Current Medications Current Medications Al Hydrox/Mg Hydrox/Simethicone (Mylanta) 30 ml Q4HP PRN PO HEAR TBURN/INDIGESTION; Start 11/01/18 at 19:00 Amlodipine Besylate (Norvasc) 10 mg DAILY PO Last administered on 11/03/18at 11:31; Start 11/03/18 at 09:00 Dextrose (Dextrose 50%) 25 ml ASDIRECTED PRN IV SEE LABEL COMMENTS; Start 11/01/18 at 19:15 Escitalopram Oxalate (Lexapro) 10 mg QPM PO Last administered on 11/02/18at 20:08; Start 11/02/18 at 21:00 EZETIMIBE (Zetia) 10 mg QHS PO Last administered on 11/02/18at 20:07; Start 11/02/18 at 21:00 Glucagon (Glucagon) 1 mg ASDIRECTED PRN SC SEE LABEL COMMENTS; Start 11/01/18 at 19:15 Glucose (Glucose) 16 GM ASDIRECTED PRN PO SEE LABEL COMMENTS; Start 11/01/18 at 19:15 Ibuprofen (Advil) 400 mg Q6HP PRN PO PAIN Last administered on 11/02/18at 20:11; Start 11/01/18 at 19:00 Insulin Human Lispro (HumaLOG INSULIN) See Protocol Table AC SC Last administered on 11/03/18at 11:41; Start 11/02/18 at 07:30 Insulin Human Lispro (HumaLOG INSULIN) See Protocol Table QHS SC ; Start 11/01/18 at 21:00 Lisinopril (Prinivil) 20 mg QHS PO ; Start 11/02/18 at 21:00; Stop 11/02/18 at 21:00; Status DC Lisinopril (Prinivil) 30 mg QHS PO Last administered on 11/02/18at 20:10; Start 11/02/18 at 21:00 Magnesium Hydroxide (Milk Of Magnesia) 30 ml DAILYPRN PRN PO CONSTIPATION; Start 11/01/18 at 19:00 Omeprazole (PriLOSEC) 40 mg DAILY PO Last administered on 11/03/18at 11:31; Start 11/02/18 at 09:00 Ondansetron HCl (Zofran) 4 mg Q6HP PRN PO NAUSEA OR VOMITING; Start 11/01/18 at 19:00 Sertraline HCl (Zoloft) 50 mg DAILY PO ; Start 11/03/18 at 09:00; Status Cancel Trazodone HCl (Desyrel) 50 mg QHSP PRN PO INSOMNIA; Start 11/01/18 at 19:00 Allergies Coded Allergies: Sulfamethoxazole w/Trimethoprim (Verified Allergy, Intermediate, rash, 11/09/17) MAVERICK CAMACHO MD Nov 03, 2018 18:00
[2018-11-03] MEDS: SERTRALINE HCL 50 MG TAB PO SCH (18:21)
[2018-11-03] MEDS: LISINOPRIL 10 MG TAB PO SCH (20:37)
[2018-11-03] MEDS: EZETIMIBE 10 MG TAB (ZETIA) PO SCH (20:37)
[2018-11-03] MEDS: traZODone 50 MG TAB PO PRN (21:43)
[2018-11-03] MEDS ORDERED: **hydrALAZINE HCL** 25 MG TAB PO ONE (22:30)
[2018-11-04 06:56] VITALS: BP 121/74
[2018-11-04] MEDS: HumaLOG INSULIN (NovoLOG) PER UNIT SC SCH ×4 (06:56→21:00)
[2018-11-04 07:17] LABS: ALBUMIN 4.1 GM/DL (3.2-5.2); BILIRUBIN,DIRECT 0.2 MG/DL (0.0-0.2); BILIRUBIN,TOTAL 0.7 MG/DL (0.2-1.0); TOTAL PROTEIN 7.3 GM/DL (6.4-8.2)
[2018-11-04] MEDS: metFORMIN (GLUCOPHAGE) 500 MG TAB PO SCH (08:55)
[2018-11-04] MEDS: amLODIPine 10 MG TAB PO SCH (08:55)
[2018-11-04] MEDS: SERTRALINE HCL 50 MG TAB PO SCH (08:55)
[2018-11-04] MEDS: OMEPRAZOLE 20 MG CAP PO SCH (08:55)
[2018-11-04] MEDS: **hydrALAZINE HCL** 25 MG TAB PO SCH ×2 (08:56→20:40)
--- NOTE | 2018-11-04 10:02 | HPE ---
DATE OF ADMISSION: 11/01/2018 Please refer to psychiatric history and evaluation for further details on this admission. This examination and history is intended for medical issues, which may need treatment, followup, or consult on this 58-year-old male who was transferred from the intensive care unit (ICU) after having been treated and stabilized, having taken an overdose of hydrocodone and lisinopril. He was given Mucomyst per poison control. His liver functions were monitored. They are decreasing. Will recheck them again in the morning. He has a history of hypertension and recently had his antihypertensive medications increased by his primary care provider from lisinopril 20 to lisinopril 30, and he remained on Norvasc 10. Blood pressure continues to be elevated here, 156/94 and 141/84 and most recently 171/104. Will add hydralazine 25 by mouth twice a day and increase as needed. He also drinks approximately 6-9 ounces of run daily. Will give him thiamine. PRIMARY CARE PROVIDER: KATERINA Vegas ALLERGIES: SEPTRA. SOCIAL HISTORY: He is . He drinks at least 6-9 ounces of rum every day. He does not smoke cigarettes. He does not use recreational drugs: PAST MEDICAL HISTORY: 1. Obstructive sleep apnea, wears continuous positive airway pressure (CPAP). 2. Gastroesophageal reflux disease (GERD). 3. Hypertension. 4. Hypercholesterolemia. 5. Noninsulin-dependent diabetes type 2. 6. Depression. 7. Erectile dysfunction. PAST SURGICAL HISTORY: 1. Tonsillectomy. 2. Left wrist repair. 3. Left shoulder surgery 2018. LABORATORY STUDIES: Liver function tests (LFTs) have been elevated. They have been being repeated. His last test, initial AST was 413, ALT was 629, most recently. AST on 11/03/2018 was 53 with an ALT of 273. Will recheck in the a.m. Fingerstick blood sugars have been fasting 127, evenings 136, 138. Will restart his metformin 500 mg by mouth daily with a meal. Ten systems review was done and was unremarkable. The patient had no complaints. HOME MEDICATIONS: - Lexapro 20 mg by mouth daily - Nexium 40 mg by mouth daily - Zetia 10 mg by mouth nightly - lisinopril 30 mg by mouth nightly - metformin 500 mg by mouth daily with a meal - Viagra 50 mg as needed erectile dysfunction PHYSICAL EXAMINATION: A 58-year-old cooperative male, in no acute distress. Height 66 inches, weight 82.7 kg, body mass index (BMI) 29.4, blood pressure 162/80, pulse 97, respirations 20, temperature 99. The patient is alert and oriented times three. Pupils are equal and react to light. Extraocular movements (EOMs) intact. Cornea and sclerae clear. Conjunctivae normal. No facial asymmetry. Pharynx, tongue, gums pink and moist. Tongue is midline. NECK: Is supple without lymphadenopathy. No thyromegaly. No goiter. Carotids 2+ without bruit. CHEST: Clear to auscultation without wheeze or retraction. HEART: Is regular. ABDOMEN: Benign. Bowel sounds positive. GENITOURINARY ()/RECTAL: Not done. EXTREMITIES: Show equal strength, full range of motion. No cyanosis, clubbing, or edema. Peripheral pulses equal and palpable bilaterally. SKIN: Is warm and dry. IMPRESSION AND PLAN: 1. Psychiatric plan per psychiatry. 2. Electrocardiogram (EKG) on file shows sinus tachycardia 101, nonspecific T wave abnormality. 3. History of overdose of hydrocodone with elevated liver functions. 4. Also, history of ethyl alcohol (EtOH) abuse. Recheck liver panel in the a.m. Thiamine 100 mg by mouth daily. Monitor for withdrawal. 5. History of obstructive sleep apnea. Uses CPAP. Instructed to have his family bring his in. He states that it is packed and ready to go, as they are moving. 6. History of gastroesophageal reflux disease. Will continue proton pump inhibitor. 7. History of hypertension with elevated blood pressures. Will add hydralazine. Start at 25 mg by mouth twice a day. 8. Hypercholesterolemia. Continue Zetia. 9. Noninsulin-dependent diabetes type 2. Consistent-carbohydrate diet. Restart metformin 500 by mouth daily with a meal.
--- NOTE | 2018-11-04 16:13 | MHIPNPDOC ---
[facility] Progress Note Progress Note DATE OF SERVICE: 11/04/18 HISTORY: Patient is a 58-year-old male, who , according to previous records: "As per previous records: "Patient is a 58-year-old male with past medical history of diabetes, hypertension, depression, erectile dysfunction, GERD, hyperlipidemia presenting with chief complaint of an overdose and altered mental status. History limited secondary to patient being unable to give an appropriate history of the last 24 hours. He believes that sometime last night he woke possibly 60 tablets of hydrocodone, 20 lisinopril 10 mg, and 20 lisinopril 20 mg. history obtained by the ER attending however states that we at time of presentation we were approximately 11 hours into the overdose. Per his , he told her that he left a note for her on the computer and she believes he did intend to kill himself. She states that he has been having a lot of social difficulties with his family recently and that could've been a continuing factor to his suicidal actions. At bedside patient becomes easily distracted when asked questions and is not able to remember any answer. But he does attempt to respond to questions and after repeated prompting is able to respond appropriately. He states he is felt depressed for many the past years, his states that he has been taking his antidepressant medication during this time." VITAL SIGNS: See below. NEW TEST RESULTS: See below CURRENT MEDICATIONS: See below. MENTAL STATUS EXAMINATION: Patient is a 58-year old male, who is alert, cooperative, pleasant, dressed in personal clothes. Speech: Is clear, spontaneous, fluent. Language skills are good. Thought processes including: intact. Thought content: anxious and depressive thoughts. Description of abnormal or psychotic thoughts: Denies SI, denies HI, denies thought delusions, denies AV hallucinations, reports feeling emotional/sd Judgment: improving. Insight: improving. Orientation: x3. Recent and remote memory: intact. Attention span and concentration: good. Language: normal. Fund of knowledge: average. Mood: sad/depressed/anxiousAffect: sad/depressed DIAGNOSES: 1. MDD, severe, recurrent 2. Alcohol use disorder. 3. R/O substance induced depression. ASSESSMENT: Cooperative, pleasant. He thinks he doesn't need to go to Rehab "because I don't drink because I like it, I drink because it relaxes me". He is in denial about needing help to stop his alcohol abuse/use. He is aware that it played a role in his suicide attempt and he says if he would ever have SI again he would think about his and the pain he has inflicted on to her. MANAGEMENT PLAN: Zoloft 50 mgs PO daily TIME SPENT: 20 minutes. Vital Signs Vital Signs Date Time Temp Pulse Resp B/P (MAP) Pulse Ox O2 Delivery O2 Flow Rate FiO2 11/04/18 08:56 121/74 11/04/18 08:55 63 11/04/18 06:56 98.3 14 11/01/18 19:46 98 Room Air Laboratory Data 24H Labs Laboratory Tests 2 11/03/18 18:19: Bedside Glucose (Misc Panel) 138H 11/03/18 20:34: Bedside Glucose (Misc Panel) 136H 11/04/18 06:24: Aspartate Amino Transf (AST/SGOT) 40H, Alanine Aminotransferase (ALT/SGPT) 204H, Alkaline Phosphatase 75, Total Bilirubin 0.7, Direct Bilirubin 0.2, Total Protein 7.3, Albumin 4.1, Albumin/Globulin Ratio 1.28 11/04/18 06:54: Bedside Glucose (Misc Panel) 127H 11/04/18 12:00: Bedside Glucose (Misc Panel) 144H Current Medications Current Medications Al Hydrox/Mg Hydrox/Simethicone (Mylanta) 30 ml Q4HP PRN PO HEARTBURN/ INDIGESTION; Start 11/01/18 at 19:00 Amlodipine Besylate (Norvasc) 10 mg DAILY PO Last administered on 11/04/18at 08:55; Start 11/03/18 at 09:00 Dextrose (Dextrose 50%) 25 ml ASDIRECTED PRN IV SEE LABEL COMMENTS; Start 11/01/18 at 19:15 Escitalopram Oxalate (Lexapro) 10 mg QPM PO Last administered on 11/02/18at 20:08; Start 11/02/18 at 21:00; Stop 11/03/18 at 17:55; Status DC EZETIMIBE (Zetia) 10 mg QHS PO Last administered on 11/03/18at 20:37; Start 11/02/18 at 21:00 Glucagon (Glucagon) 1 mg ASDIRECTED PRN SC SEE LABEL COMMENTS; Start 11/01/18 at 19:15 Glucose (Glucose) 16 GM ASDIRECTED PRN PO SEE LABEL COMMENTS; Start 11/01/18 at 19:15 Hydralazine HCl (Apresoline) 25 mg BID PO Last administered on 11/04/18at 08:56; Start 11/04/18 at 09:00 Ibuprofen (Advil) 400 mg Q6HP PRN PO PAIN Last administered on 11/02/18at 20:11; Start 11/01/18 at 19:00 Insulin Human Lispro (HumaLOG INSULIN) See Protocol Table AC SC Last administered on 11/04/18at 12:04; Start 11/02/18 at 07:30 Insulin Human Lispro (HumaLOG INSULIN) See Protocol Table QHS SC ; Start 11/01/18 at 21:00 Lisinopril (Prinivil) 20 mg QHS PO ; Start 11/02/18 at 21:00; Stop 11/02/18 at 21:00; Status DC Lisinopril (Prinivil) 30 mg QHS PO Last administered on 11/03/18at 20:37; Start 11/02/18 at 21:00 Magnesium Hydroxide (Milk Of Magnesia) 30 ml DAILYPRN PRN PO CONSTIPATION; Start 11/01/18 at 19:00 Metformin HCl (Glucophage) 500 mg DAILY@08 PO Last administered on 11/04/18at 08:55; Start 11/04/18 at 08:00 Omeprazole (PriLOSEC) 40 mg DAILY PO Last administered on 11/04/18at 08:55; Start 11/02/18 at 09:00 Ondansetron HCl (Zofran) 4 mg Q6HP PRN PO NAUSEA OR VOMITING; Start 11/01/18 at 19:00 Sertraline HCl (Zoloft) 50 mg DAILY PO ; Start 11/03/18 at 09:00; Status Cancel Sertraline HCl (Zoloft) 50 mg QAM PO Last administered on 11/04/18at 08:55; Start 11/03/18 at 09:00 Trazodone HCl (Desyrel) 50 mg QHSP PRN PO INSOMNIA Last administered on 11/03/18at 21:43; Start 11/01/18 at 19:00 Allergies Coded Allergies: Sulfamethoxazole w/Trimethoprim (Verified Allergy, Intermediate, rash, 11/09/17) MAVERICK CAMACHO MD Nov 04, 2018 16:13
[2018-11-04 18:00] VITALS: BP_SYST 127
[2018-11-04] MEDS: EZETIMIBE 10 MG TAB (ZETIA) PO SCH (20:40)
[2018-11-04] MEDS: LISINOPRIL 10 MG TAB PO SCH (20:41)
[2018-11-04] MEDS: traZODone 50 MG TAB PO PRN (20:43)
[2018-11-05 06:48] VITALS: BP 127/74
[2018-11-05] MEDS: HumaLOG INSULIN (NovoLOG) PER UNIT SC SCH ×4 (07:13→21:00)
[2018-11-05 08:30] LABS: ALBUMIN 4.1 GM/DL (3.2-5.2); BILIRUBIN,DIRECT 0.1 MG/DL (0.0-0.2); BILIRUBIN,TOTAL 0.4 MG/DL (0.2-1.0); TOTAL PROTEIN 7.4 GM/DL (6.4-8.2)
[2018-11-05] MEDS: metFORMIN (GLUCOPHAGE) 500 MG TAB PO SCH (08:46)
[2018-11-05] MEDS: SERTRALINE HCL 50 MG TAB PO SCH (08:46)
[2018-11-05] MEDS: OMEPRAZOLE 20 MG CAP PO SCH (08:46)
[2018-11-05] MEDS: **hydrALAZINE HCL** 25 MG TAB PO SCH ×2 (08:46→21:29)
[2018-11-05] MEDS: amLODIPine 10 MG TAB PO SCH (08:47)
--- NOTE | 2018-11-05 16:07 | MHIPNPDOC ---
[facility] Progress Note Progress Note DATE OF SERVICE: 11/05/18 HISTORY: Patient is a 58-year-old male, who , according to previous records: "As per previous records: "Patient is a 58-year-old male with past medical history of diabetes, hypertension, depression, erectile dysfunction, GERD, hyperlipidemia presenting with chief complaint of an overdose and altered mental status. History limited secondary to patient being unable to give an appropriate history of the last 24 hours. He believes that sometime last night he woke possibly 60 tablets of hydrocodone, 20 lisinopril 10 mg, and 20 lisinopril 20 mg. history obtained by the ER attending however states that we at time of presentation we were approximately 11 hours into the overdose. Per his , he told her that he left a note for her on the computer and she believes he did intend to kill himself. She states that he has been having a lot of social difficulties with his family recently and that could've been a continuing factor to his suicidal actions. At bedside patient becomes easily distracted when asked questions and is not able to remember any answer. But he does attempt to respond to questions and after repeated prompting is able to respond appropriately. He states he is felt depressed for many the past years, his states that he has been taking his antidepressant medication during this time." VITAL SIGNS: See below. NEW TEST RESULTS: See below CURRENT MEDICATIONS: See below. MENTAL STATUS EXAMINATION: Patient is a 58-year old male, who is alert, cooperative, pleasant, dressed in personal clothes. Speech: Is clear, spontaneous, fluent. Language skills are good. Thought processes including: intact. Thought content: anxious and depressive thoughts. Description of abnormal or psychotic thoughts: Denies SI, denies HI, denies thought delusions, denies AV hallucinations, reports feeling emotional/sd Judgment: improving. Insight: improving. Orientation: x3. Recent and remote memory: intact. Attention span and concentration: good. Language: normal. Fund of knowledge: average. Mood: sad/depressed/anxiousAffect: sad/depressed DIAGNOSES: 1. MDD, severe, recurrent 2. Alcohol use disorder. 3. R/O substance induced depression. ASSESSMENT: Patient was again cooperative but he continues to minimize the magnitude of his alcohol abuse. He is aware that he has a problem with alcohol but he says he doesn't like alcohol, he only drinks it to use it as a crutch for his anxiety disorder. Patient says he would still like to increase his antidepressant a little bit and I explained why it takes more time to feel the full effect of antidepressants. He says he understands. I increased Zoloft to 75 mcg. Po daily. MANAGEMENT PLAN: Zoloft 75 mgs PO daily TIME SPENT: 20 minutes. Vital Signs Vital Signs Date Time Temp Pulse Resp B/P (MAP) Pulse Ox O2 Delivery O2 Flow Rate FiO2 11/05/18 08:47 69 127/74 11/05/18 06:48 97.5 14 11/01/18 19:46 98 Room Air Laboratory Data 24H Labs Laboratory Tests 2 11/04/18 17:05: Bedside Glucose (Misc Panel) 101 11/04/18 20:36: Bedside Glucose (Misc Panel) 157H 11/05/18 06:33: Bedside Glucose (Misc Panel) 136H 11/05/18 07:26: Aspartate Amino Transf (AST/SGOT) 39H, Alanine Aminotransferase (ALT/SGPT) 164H, Alkaline Phosphatase 85, Total Bilirubin 0.4, Direct Bilirubin 0.1, Total Protein 7.4, Albumin 4.1, Albumin/Globulin Ratio 1.24 11/05/18 12:12: Bedside Glucose (Misc Panel) 95 Current Medications Current Medications Al Hydrox/Mg Hydrox/Simethicone (Mylanta) 30 ml Q4HP PRN PO HEARTBURN/INDIGESTION; Start 11/01/18 at 19:00 Amlodipine Besylate (Norvasc) 10 mg DAILY PO Last administered on 11/05/18at 08:47; Start 11/03/18 at 09:00 Dextrose (Dextrose 50%) 25 ml ASDIRECTED PRN IV SEE LABEL COMMENTS; Start 11/01/18 at 19:15 Escitalopram Oxalate (Lexapro) 10 mg QPM PO Last administered on 11/02/18at 20:08; Start 11/02/18 at 21:00; Stop 11/03/18 at 17:55; Status DC EZETIMIBE (Zetia) 10 mg QHS PO Last administered on 11/04/18at 20:40; Start 11/02/18 at 21:00 Glucagon (Glucagon) 1 mg ASDIRECTED PRN SC SEE LABEL COMMENTS; Start 11/01/18 at 19:15 Glucose (Glucose) 16 GM ASDIRECTED PRN PO SEE LABEL COMMENTS; Start 11/01/18 at 19:15 Hydralazine HCl (Apresoline) 25 mg BID PO Last administered on 11/05/18at 08:46; Start 11/04/18 at 09:00 Ibuprofen (Advil) 400 mg Q6HP PRN PO PAIN Last administered on 11/02/18at 20:11; Start 11/01/18 at 19:00 Insulin Human Lispro (HumaLOG INSULIN) See Protocol Table AC SC Last administered on 11/05/18at 07:13; Start 11/02/18 at 07:30 Insulin Human Lispro (HumaLOG INSULIN) See Protocol Table QHS SC ; Start 11/01/18 at 21:00 Lisinopril (Prinivil) 20 mg QHS PO ; Start 11/02/18 at 21:00; Stop 11/02/18 at 21:00; Status DC Lisinopril (Prinivil) 30 mg QHS PO Last administered on 11/04/18at 20:41; Start 11/02/18 at 21:00 Magnesium Hydroxide (Milk Of Magnesia) 30 ml DAILYPRN PRN PO CONSTIPATION; Start 11/01/18 at 19:00 Metformin HCl (Glucophage) 500 mg DAILY@08 PO Last administered on 11/05/18at 08:46; Start 11/04/18 at 08:00 Omeprazole (PriLOSEC) 40 mg DAILY PO Last administered on 11/05/18at 08:46; Start 11/02/18 at 09:00 Ondansetron HCl (Zofran) 4 mg Q6HP PRN PO NAUSEA OR VOMITING; Start 11/01/18 at 19:00 Sertraline HCl (Zoloft) 50 mg DAILY PO ; Start 11/03/18 at 09:00; Status Cancel Sertraline HCl (Zoloft) 50 mg QAM PO Last administered on 11/05/18at 08:46; Start 11/03/18 at 09:00; Stop 11/05/18 at 15:48; Status DC Sertraline HCl (Zoloft) 75 mg QAM PO ; Start 11/06/18 at 09:00 Trazodone HCl (Desyrel) 50 mg QHSP PRN PO INSOMNIA Last administered on 11/04/18at 20:43; Start 11/01/18 at 19:00 Allergies Coded Allergies: Sulfamethoxazole w/Trimethoprim (Verified Allergy, Intermediate, rash, ) MAVERICK CAMACHO MD Nov 05, 2018 16:07
[2018-11-05 18:00] VITALS: BP 141/81
[2018-11-05] MEDS: traZODone 50 MG TAB PO PRN (20:40)
[2018-11-05] MEDS: EZETIMIBE 10 MG TAB (ZETIA) PO SCH (20:40)
[2018-11-05] MEDS: LISINOPRIL 10 MG TAB PO SCH (20:44)
[2018-11-06 06:45] VITALS: BP 133/65
[2018-11-06] MEDS: HumaLOG INSULIN (NovoLOG) PER UNIT SC SCH ×4 (06:54→20:38)
[2018-11-06 07:27] LABS: ALBUMIN 4.3 GM/DL (3.2-5.2); ALT/SGPT 157 U/L (12-78); BILIRUBIN,DIRECT 0.1 MG/DL (0.0-0.2); BILIRUBIN,TOTAL 0.4 MG/DL (0.2-1.0); TOTAL PROTEIN 7.3 GM/DL (6.4-8.2)
[2018-11-06] MEDS: OMEPRAZOLE 20 MG CAP PO SCH (08:13)
[2018-11-06] MEDS: **hydrALAZINE HCL** 25 MG TAB PO SCH ×2 (08:13→20:38)
[2018-11-06] MEDS: SERTRALINE HCL 25 MG TABLET PO SCH (08:13)
[2018-11-06] MEDS: metFORMIN (GLUCOPHAGE) 500 MG TAB PO SCH (08:13)
[2018-11-06] MEDS: amLODIPine 10 MG TAB PO SCH (08:13)
[2018-11-06 18:00] VITALS: BP 144/82
--- NOTE | 2018-11-06 19:53 | MHIPNPDOC ---
[facility] Progress Note Progress Note DATE OF SERVICE: 11/06/18 HISTORY: Patient is a 58-year-old male, who , according to previous records: "As per previous records: "Patient is a 58-year-old male with past medical history of diabetes, hypertension, depression, erectile dysfunction, GERD, hyperlipidemia presenting with chief complaint of an overdose and altered mental status. History limited secondary to patient being unable to give an appropriate history of the last 24 hours. He believes that sometime last night he woke possibly 60 tablets of hydrocodone, 20 lisinopril 10 mg, and 20 lisinopril 20 mg. history obtained by the ER attending however states that we at time of presentation we were approximately 11 hours into the overdose. Per his , he told her that he left a note for her on the computer and she believes he did intend to kill himself. She states that he has been having a lot of social difficulties with his family recently and that could've been a continuing factor to his suicidal actions. At bedside patient becomes easily distracted when asked questions and is not able to remember any answer. But he does attempt to respond to questions and after repeated prompting is able to respond appropriately. He states he is felt depressed for many the past years, his states that he has been taking his antidepressant medication during this time." VITAL SIGNS: See below. NEW TEST RESULTS: See below CURRENT MEDICATIONS: See below. MENTAL STATUS EXAMINATION: Patient is a 58-year old male, who is alert, cooperative, pleasant, dressed in personal clothes. Speech: Is clear, spontaneous, fluent. Language skills are good. Thought processes including: intact. Thought content: goal directed, hopeful and happy thoughts about going home tomorrow Description of abnormal or psychotic thoughts: Denies SI, denies HI, denies thought delusions, denies AV hallucinations, reports feeling emotional/sd Judgment: improving. Insight: improving. Orientation: x3. Recent and remote memory: intact. Attention span and concentration: good. Language: normal. Fund of knowledge: average. Mood: euthymicAffect: full, reactive, appropriate, congruent with mood DIAGNOSES: 1. MDD, severe, recurrent 2. Alcohol use disorder. 3. R/O substance induced depression. ASSESSMENT: Patient is looking better, he continues to be cooperative. He is happy about going home tomorrow, he says he feels the medications are working and he denies medication side effects. He is not suicidal, not homicidal and not psychotic. He can be discharged tomorrow if he continues to be stable. MANAGEMENT PLAN: Zoloft 75 mgs PO daily and discharge tomorrow TIME SPENT: 20 minutes. Vital Signs Vital Signs Date Time Temp Pulse Resp B/P (MAP) Pulse Ox O2 Delivery O2 Flow Rate FiO2 11/06/18 18:00 97.6 91 18 144/82 (102) 11/01/18 19:46 98 Room Air Laboratory Data 24H Labs Laboratory Tests 2 11/05/18 20:37: Bedside Glucose (Misc Panel) 159H 11/06/18 06:20: Bedside Glucose (Misc Panel) 129H 11/06/18 06:29: Aspartate Amino Transf (AST/SGOT) 46H, Alanine Aminotransferase (ALT/SGPT) 157H, Alkaline Phosphatase 91, Total Bilirubin 0.4, Direct Bilirubin 0.1, Total Protein 7.3, Albumin 4.3, Albumin/Globulin Ratio 1.43 11/06/18 12:04: Bedside Glucose (Misc Panel) 75 11/06/18 17:08: Bedside Glucose (Misc Panel) 94 Current Medications Current Medications Al Hydrox/Mg Hydrox/Simethicone (Mylanta) 30 ml Q4HP PRN PO HEARTBURN/INDIGESTION; Start 11/01/18 at 19:00 Amlodipine Besylate (Norvasc) 10 mg DAILY PO Last administered on 11/06/18at 08:13; Start 11/03/18 at 09:00 Dextrose (Dextrose 50%) 25 ml ASDIRECTED PRN IV SEE LABEL COMMENTS; Start 11/01/18 at 19:15 Escitalopram Oxalate (Lexapro) 10 mg QPM PO Last administered on 11/02/18at 20:08; Start 11/02/18 at 21:00; Stop 11/03/18 at 17:55; Status DC EZETIMIBE (Zetia) 10 mg QHS PO Last administered on 11/05/18at 20:40; Start 11/02/18 at 21:00 Glucagon (Glucagon) 1 mg ASDIRECTED PRN SC SEE LABEL COMMENTS; Start 11/01/18 at 19:15 Glucose (Glucose) 16 GM ASDIRECTED PRN PO SEE LABEL COMMENTS; Start 11/01/18 at 19:15 Hydralazine HCl (Apresoline) 25 mg BID PO Last administered on 11/06/18at 08:13; Start 11/04/18 at 09:00 Ibuprofen (Advil) 400 mg Q6HP PRN PO PAIN Last administered on 11/02/18at 20:11; Start 11/01/18 at 19:00 Insulin Human Lispro (HumaLOG INSULIN) See Protocol Table AC SC Last administered on 11/06/18at 06:54; Start 11/02/18 at 07:30 Insulin Human Lispro (HumaLOG INSULIN) See Protocol Table QHS SC ; Start 11/01/18 at 21:00 Lisinopril (Prinivil) 20 mg QHS PO ; Start 11/02/18 at 21:00; Stop 11/02/18 at 21:00; Status DC Lisinopril (Prinivil) 30 mg QHS PO Last administered on 11/05/18at 20:44; Start 11/02/18 at 21:00 Magnesium Hydroxide (Milk Of Magnesia) 30 ml DAILYPRN PRN PO CONSTIPATION; Start 11/01/18 at 19:00 Metformin HCl (Glucophage) 500 mg DAILY@08 PO Last administered on 11/06/18at 08:13; Start 11/04/18 at 08:00 Omeprazole (PriLOSEC) 40 mg DAILY PO Last administered on 11/06/18at 08:13; Start 11/02/18 at 09:00 Ondansetron HCl (Zofran) 4 mg Q6HP PRN PO NAUSEA OR VOMITING; Start 11/01/18 at 19:00 Sertraline HCl (Zoloft) 50 mg DAILY PO ; Start 11/03/18 at 09:00; Status Cancel Sertraline HCl (Zoloft) 50 mg QAM PO Last administered on 11/05/18at 08:46; Start 11/03/18 at 09:00; Stop 11/05/18 at 15:48; Status DC Sertraline HCl (Zoloft) 75 mg QAM PO Last administered on 11/06/18at 08:13; Start 11/06/18 at 09:00 Trazodone HCl (Desyrel) 50 mg QHSP PRN PO INSOMNIA Last administered on 10/19 07/06at 20:40; Start 11/01/18 at 19:00 Allergies Coded Allergies: Sulfamethoxazole w/Trimethoprim (Verified Allergy, Intermediate, rash, 11/09/17) MAVERICK CAMACHO MD Nov 06, 2018 19:53
[2018-11-06] MEDS ORDERED: TRAZO50TA PO (20:09)
[2018-11-06] MEDS ORDERED: ZETI10TA30 PO (20:09)
[2018-11-06] MEDS ORDERED: AMLO10TA4 PO (20:09)
[2018-11-06] MEDS ORDERED: SERT25TA PO (20:09)
[2018-11-06] MEDS ORDERED: METF500T13 PO (20:09)
[2018-11-06] MEDS ORDERED: HYDR25TA PO (20:09)
[2018-11-06] MEDS ORDERED: LISI-672 PO (20:09)
[2018-11-06] MEDS ORDERED: NEXI40CA PO (20:09)
[2018-11-06] MEDS: LISINOPRIL 10 MG TAB PO SCH (20:38)
[2018-11-06] MEDS: EZETIMIBE 10 MG TAB (ZETIA) PO SCH (20:38)
[2018-11-06] MEDS: traZODone 50 MG TAB PO PRN (20:39)
[2018-11-07] MEDS: HumaLOG INSULIN (NovoLOG) PER UNIT SC SCH (06:57)
[2018-11-07] MEDS: metFORMIN (GLUCOPHAGE) 500 MG TAB PO SCH (08:29)
[2018-11-07] MEDS: amLODIPine 10 MG TAB PO SCH (08:29)
[2018-11-07 08:30] VITALS: BP 136/84
[2018-11-07] MEDS: SERTRALINE HCL 25 MG TABLET PO SCH (08:30)
[2018-11-07] MEDS: **hydrALAZINE HCL** 25 MG TAB PO SCH (08:30)
[2018-11-07] MEDS: OMEPRAZOLE 20 MG CAP PO SCH (08:30)
--- NOTE | 2018-11-07 09:15 | REP ---
Right upper quadrant sonography: History: Elevated transaminase levels. No comparison study. Findings: Scanning through the right upper quadrant of the abdomen demonstrates multiple nonshadowing gallbladder wall polyps up to 7 mm in greatest diameter. No stone is appreciated. No pericholecystic fluid or wall thickening is seen. Common bile duct is normal measuring 0.5 cm in greatest diameter. There is mild fatty liver change. Limited views of the pancreas show no abnormality. The pancreatic tail is somewhat obscured by bowel gas. There is no evidence of ascites. The right kidney is morphologically normal measuring 10.9 x 4.2 x 5.4 cm. Impression: Evidence of fatty infiltration of the liver. Multiple gallbladder wall polyps. No stone or sludge seen. Electronically Signed by Connor Graham MD 11/07/2018 09:06 A
[2018-11-08 10:27] LABS: HEPATITIS A ANTIBODY IGM NEGATIVE (NEGATIVE); HEPATITIS B CORE ANTIBODY IGM NEGATIVE (NEGATIVE); HEPATITIS B SURFACE ANTIGEN NEGATIVE (NEGATIVE); HEPATITIS C VIRUS ABY INDEX 0.1 INDEX (<0.8)
--- NOTE | 2018-11-08 13:38 | MHDS ---
DATE OF ADMISSION: 11/01/2018 DATE OF DISCHARGE: 11/07/2018 DIAGNOSES: 1. Major depressive disorder, severe, recurrent. 2. Alcohol use disorder. IDENTIFYING DATA: This is a 58-year-old male who was admitted because of severe depression and suicidal thoughts. For details of history of present illness, past psychiatric history, substance abuse history, medical history, social history please refer to the initial evaluation. COURSE IN THE HOSPITAL: The patient initially was severely depressed and contemplating suicidal thoughts. He was placed on sertraline 75 mg once daily and trazodone 50 mg at night as needed. The patient was encouraged to participate in activities. He was also provided with individual, group and milieu therapy for support. Slowly, the patient started attending groups. His isolation decreased. He slept better. He denied any side effects of the medication. He was stable at the time of discharge. MENTAL STATUS EXAMINATION: Appearance: Casually dressed, cooperative. Made good eye contact. Speech is spontaneous. Thought process linear and goal directed. Psychomotor activity is normal. Mood is euthymic. Affect is full range. Thought content: Denied any auditory or visual hallucinations. Denied any suicidal or homicidal ideas. Cognition is alert and oriented to time, place, person, and situation. Memory is intact. Insight and judgment are good. VITAL SIGNS: Temperature 97.6, pulse 91, blood pressure 126/94, respiratory rate is 18. The patient will have outpatient followup at [facility] mental health. His will supervise his medications.
--- NOTE | 2018-11-11 02:42 | MHDSPDOC ---
[facility] Discharge Summary Discharge Summary DATE OF ADMISSION: Nov 01, 2018 at 19:15 DATE OF DISCHARGE: Nov 07, 2018 at 10:15 DISCHARGE DIAGNOSES: 1. MDD, severe, recurrent 2. Alcohol use disorder. 3. R/O substance induced depression. REASON FOR ADMISSION: Patient is a 58-year-old male, who , according to previous records: "As per previous records: "Patient is a 58-year-old male with past medical history of diabetes, hypertension, depression, erectile dysfunction, GERD, hyperlipidemia presenting with chief complaint of an overdose and altered mental status. History limited secondary to patient being unable to give an appropriate history of the last 24 hours. He believes that sometime last night he woke possibly 60 tablets of hydrocodone, 20 lisinopril 10 mg, and 20 lisinopril 20 mg. history obtained by the ER attending however states that we at time of presentation we were approximately 11 hours into the overdose. Per his , he told her that he left a note for her on the computer and she believes he did intend to kill himself. She states that he has been having a lot of social difficulties with his family recently and that could've been a continuing factor to his suicidal actions. At bedside patient becomes easily distracted when asked questions and is not able to remember any answer. But he does attempt to respond to questions and after repeated prompting is able to respond appropriately. He states he is felt depressed for many the past years, his states that he has been taking his antidepressant medication during this time." CONSULTANTS INVOLVED: None TREATMENT AND PROGRESS ON THE UNIT : Patient was transferred from the medical floor where he had been hospitalized after patient overdosed on lisinopril and hydrocodone. He reported multiple stressors, mostly family related, that had contributed to his suicidal attempt. Through the course of his hopsitalization he was found to be severely depressed and severely anxious. He said he had been using alcohol for years to cover up his anxiety and depression. He was insightful about his alcohol abuse although at times he seemed to minimize it. Patient had a good response to sertraline, 75 mgs. He received support, was encouraged to attend groups and was encouraged to seek help for his alcohol abuse, but he said he really didn't drink because he liked it, he drank to get rid of his anxiety and he thought once the anxiety and depression were under control, he was not going to feel like drinking again and he said that after th at experience he didn't want to touch alcohol again because he thought if he wouldn't have been drunk, he probably would have not attempted to commit suicide. HOSPITAL COURSE: As above DISCHARGE ASSESSMENT: Patient was not homicidal, not suicidal and not psychotic upon discharge. MENTAL STATUS EXAMINATION ON DISCHARGE: Patient is a 58-year old male, who is alert, cooperative, pleasant, dressed in personal clothes. Speech: Is clear, spontaneous, fluent. Language skills are good. Thought processes including: intact. Thought content: goal directed, hopeful and happy thoughts about going home tomorrow Description of abnormal or psychotic thoughts: Denies SI, denies HI, denies thought delusions, denies AV hallucinations, reports feeling emotional/sd Judgment: improving. Insight: improving. Orientation: x3. Recent and remote memory: intact. Attention span and concentration: good. Language: normal. Fund of knowledge: average. Mood: euthymicAffect: full, reactive, appropriate, congruent with mood MEDICATIONS ON DISCHARGE: Scheduled Amlodipine Besylate (Amlodipine Besylate) 10 Mg Tab, 10 MG PO DAILY for hypertension, #7 Esomeprazole Magnesium Trihydr (Nexium) 40 Mg Cap, 40 MG PO DAILY for GERD, #7 Ezetimibe (Zetia) 10 Mg Tab, 10 MG PO QHS for high cholesterol, #7 Hydralazine HCl (Hydralazine HCl) 25 Mg Tab, 25 MG PO BID for hypertension, #14 Lisinopril (Lisinopril) 30 Mg Tab, 30 MG PO QHS for hypertension, #21 WAS JUST INCREASED FROM 20MG Metformin Hydrochloride (Metformin HCl) 500 Mg Tab, 500 MG PO DAILY for diabetes, #7 Sertraline Hcl (Sertraline HCl) 25 Mg Tab, 75 MG PO QAM for depression, #21 Scheduled PRN Sildenafil Citrate (Viagra) 50 Mg Tab, 50 MG PO ASDIRECTED PRN for ERECTILE DYSFUNCTION, (Reported) Trazodone HCl (Trazodone HCl) 50 Mg Tab, 50 MG PO QHSP PRN for INSOMNIA, #7 PLAN/FOLLOWUP ARRANGEMENTS: Follow Up Care Education Label * Mental Health Appt 1 * [facility] * Established With This Provider No * Therapist CALE CROWE * Date Nov 13, 2018 * Time 13:30 * * Additional information [address] [facility] [id number] Follow Up Care Education Label * Medical * Medical Follow Up [facility] * Established With This Provider Yes * Therapist TRAM MONTELONGO * Date Nov 15, 2018 * Time 08:30 * Address of Clinic or Practice [address] [facility] * The amount of time spent in the coordination of care for this patient was approximately 30 minutes. Vital Signs/I&Os Vital Signs Date Time Temp Pulse Resp B/P (MAP) Pulse Ox O2 Delivery O2 Flow Rate FiO2 11/07/18 08:30 136/84 11/07/18 08:29 91 11/06/18 18:00 97.6 18 Medications Scheduled Amlodipine Besylate (Amlodipine Besylate) 10 Mg Tab, 10 MG PO DAILY for hypertension, #7 Esomeprazole Magnesium Trihydr (Nexium) 40 Mg Cap, 40 MG PO DAILY for GERD, #7 Ezetimibe (Zetia) 10 Mg Tab, 10 MG PO QHS for high cholesterol, #7 Hydralazine HCl (Hydralazine HCl) 25 Mg Tab, 25 MG PO BID for hypertension, #14 Lisinopril (Lisinopril) 30 Mg Tab, 30 MG PO QHS for hypertension, #21 WAS JUST INCREASED FROM 20MG Metformin Hydrochloride (Metformin HCl) 500 Mg Tab, 500 MG PO DAILY for diabetes, #7 Sertraline Hcl (Sertraline HCl) 25 Mg Tab, 75 MG PO QAM for depression, #21 Scheduled PRN Sildenafil Citrate (Viagra) 50 Mg Tab, 50 MG PO ASDIRECTED PRN for ERECTILE DYSFUNCTION, (Reported) Trazodone HCl (Trazodone HCl) 50 Mg Tab, 50 MG PO QHSP PRN for INSOMNIA, #7 Allergies Coded Allergies: Sulfamethoxazole w/Trimethoprim (Verified Allergy, Intermediate, rash, 11/09/17) MAVERICK CAMACHO MD Nov 11, 2018 02:40
== END 2018-11-07 10:15 | disposition home or self-care (01) | DRG 885 ==
LOC: M PSY 19:15
PROVIDERS: ADMIT Psychiatry & Neurology Psychiatry; ATTEND Psychiatry & Neurology Psychiatry
DX: F33.9 Major depressive disorder, recurrent, unspecified (principal); F10.10 Alcohol abuse, uncomplicated; F19.94 Other psychoactive substance use, unspecified with psychoactive substance-induced mood disorder; E11.9 Type 2 diabetes mellitus without complications; I10 Essential (primary) hypertension; K21.9 Gastro-esophageal reflux disease without esophagitis; E78.5 Hyperlipidemia, unspecified; Z79.899 Other long term (current) drug therapy; Z88.2 Allergy status to sulfonamides; G47.33 Obstructive sleep apnea (adult) (pediatric); N52.9 Male erectile dysfunction, unspecified

== ENCOUNTER → 2018-12-13 | Outpatient (CLI) | payer OTHER ==
[~2018-12-13] MED LIST changes: +AMLO10TA5 PO; +HYDR25TA PO; +SERT25TA PO; +TRAZO50TA PO
--- NOTE | 2018-12-13 10:41 | REP ---
Chest two views HISTORY: Cough Comparison: 10/29/2018 The lungs are clear. The heart is normal in size. The pulmonary vasculature is normal in appearance. The bony structure is intact. IMPRESSION: No acute disease. Electronically Signed by Moiz Cruz MD 12/13/2018 10:32 A
== END ==
LOC: M LRY 10:08
PROVIDERS: ATTEND Physician Assistant
DX: R05 Cough (principal)